=== PATIENT | male | born 1970 | race African-American/Black ===

== ENCOUNTER 2021-03-30 18:27 | Emergency (ER) | payer OTHER ==
[2021-03-30 18:42] VITALS: BMI 31.3
[2021-03-30] MEDS ORDERED: ACETAMINOPHEN 325 MG TABLET (FP) PO ONE (20:53)
[2021-03-30] MEDS ORDERED: amLODIPine BESYLATE 5 MG TABLET (FP) PO ONE (21:26)
[2021-03-30] MEDS ORDERED: amLODIPine BESYLATE 5 MG TABLET (FP) ONE (21:37)
[2021-03-30] MEDS ORDERED: ACETAMINOPHEN 325 MG TABLET (FP) ONE (21:37)
[2021-03-30 22:28] LABS: EPI CELLS 3 /uL (0-25.1); HYALINE CASTS 0 /uL (0-3.1); PH,URINE 6.5 (5.0-8.0); URINE APPEARANCE CLEAR; URINE BACTERIA 45 /uL (0-1359); URINE BILIRUBIN NEGATIVE (NEGATIVE); URINE COLOR YELLOW; URINE GLUCOSE (UA) NEGATIVE (NEGATIVE); URINE KETONE NEGATIVE (NEGATIVE); URINE LEUK ESTERASE NEGATIVE (NEGATIVE); URINE NITRITE NEGATIVE (NEGATIVE); URINE PROTEIN NEGATIVE (NEGATIVE); URINE RBC 18 /uL (0-23.9); URINE UROBILINOGEN 0.2 mg/dL (0.2-1.0); URINE WBC 18 /uL (0-25.8)
[2021-03-30 22:43] VITALS: BP 172/116; PULSE 76; TEMP 98.6
== END 2021-03-30 22:57 | disposition home or self-care (01) ==
LOC: JER 18:27
DX: N50.812 Left testicular pain (principal)
CPT/HCPCS: 76870-TC; 81003; 87086; 99284-25